=== PATIENT | female | born 1980 | race Caucasian/White ===

== ENCOUNTER → 2016-04-04 | Outpatient (REF) | payer OTHER ==
[~2016-04-04] MED LIST: ACET50TA PO; IBUP80TA PO; MOTR200T44 PO; PNV-CAP5 PO
[2016-04-04 18:30] LABS: HCG, SERUM QUANTITATIVE 104822 MIU/ML
[2016-04-04 18:39] LABS: MEAN CORPUSCULAR HEMOGLOBIN 31.4 pg (27.0-33.0); MEAN CORPUSCULAR VOLUME 92.5 fl (80.0-96.0); WHITE BLOOD COUNT 10.1 K/mm3 (4.0-10.0)
[2016-04-05 11:13] LABS: HEPATITIS B SURFACE ANTIBODY NEGATIVE (POSITIVE)
[2016-04-08 14:10] LABS: CONTROL LINE INT CTR LINE PRESENT; HIV SCRN NEGATIVE (NEGATIVE); HIV SCRN1 NEGATIVE (NEGATIVE)
== END | disposition home or self-care (01) ==
LOC: M LAB REF 16:54
PROVIDERS: ATTEND Obstetrics & Gynecology
DX: O36.80X0 Pregnancy with inconclusive fetal viability, not applicable or unspecified (principal); Z36 Encounter for antenatal screening of mother; Z3A.00 Weeks of gestation of pregnancy not specified

== ENCOUNTER → 2016-05-01 | Outpatient (REF) | payer OTHER ==
[2016-05-01 12:10] LABS: ALBUMIN 3.8 GM/DL (3.2-5.2); ALBUMIN/GLOBULIN RATIO 1.31 (1.00-1.93); ALKALINE PHOSPHATASE 54 U/L (45-117); ALT/SGPT 15 U/L (12-78); ANION GAP 7 MEQ/L (8-16); AST/SGOT 10 U/L (15-37); BILIRUBIN,TOTAL 0.6 MG/DL (0.2-1.0); BLOOD UREA NITROGEN 10 MG/DL (7-18); CALCIUM LEVEL 8.7 MG/DL (8.5-10.1); CARBON DIOXIDE LEVEL 26 MEQ/L (21-32); CHLORIDE LEVEL 106 MEQ/L (98-107); CHOLESTEROL LEVEL 156 MG/DL (<200); CREATININE FOR GFR 0.52 MG/DL (0.55-1.02); GLOMERULAR FILTRATION RATE > 60.0 (>60); GLUCOSE, FASTING 83 MG/DL (70-105); SODIUM LEVEL 139 MEQ/L (136-145); TOTAL PROTEIN 6.7 GM/DL (6.4-8.2); TRIGLYCERIDES LEVEL 80 MG/DL (<150)
== END ==
LOC: M SFHCCLAY 07:51
PROVIDERS: ATTEND Family Medicine
DX: Z00.00 Encounter for general adult medical examination without abnormal findings (principal)

== ENCOUNTER → 2016-05-02 | Outpatient (REF) | payer OTHER | LOC: M LAB REF 12:21 | PROVIDERS: ATTEND Advanced Practice Midwife | DX: O36.80X0 Pregnancy with inconclusive fetal viability, not applicable or unspecified (principal) ==

== ENCOUNTER → 2016-06-26 | Outpatient (CLI) | payer OTHER ==
--- NOTE | 2016-06-27 06:09 | REP ---
Clinical: Anatomical evaluation. Comparison: None . Findings: Examination demonstrates a single live intrauterine in cephalic presentation. motion is identified by technologist. Placenta is noted anteriorly and grade zero without evidence for placenta previa or abruption. Amniotic fluid volume is normal. Cervix measures 3.3 cm in length and appears closed. No evidence for nuchal cord. Gestational age by LMP 19 weeks 2 days with SHANTEL 11/08/2016 . Gestational age by current measurements 18 weeks 6 days with SHANTEL 11/21/2016 . FHR equals 141 beats per minute. BPD 4.1 cm 18 weeks 4 days HC 15.9 cm 18 weeks 5 days AC 13.6 cm 19 weeks 0 days FL 3.2 cm 19 weeks 6 days HC/AC ratio 1.17 Estimated weight 285 grams ( 46 percentile). Anatomical assessment demonstrates normal structures including cranium, choroid plexus, cavum, cerebellum/posterior fossa, facial features, lungs, four-chamber heart/ventricular outflow tracts, diaphragm, stomach, cord insertion/three-vessel cord, kidneys/bladder, and extremities. Limited evaluation of the facial profile and spine noted. Impression: Single live intrauterine in cephalic presentation demonstrating appropriate interval growth. Anatomical limitations as noted above. Remainder of the anatomical assessment is complete and normal. Signed by Zach Park MD 06/27/2016 06:01 A
== END ==
LOC: M WHC 08:00
PROVIDERS: ATTEND Obstetrics & Gynecology
DX: Z34.82 Encounter for supervision of other normal pregnancy, second trimester (principal); Z36 Encounter for antenatal screening of mother; Z3A.18 18 weeks gestation of pregnancy

== ENCOUNTER → 2016-07-12 | Outpatient (CLI) | payer OTHER ==
--- NOTE | 2016-07-12 13:45 | REP ---
LIMITED OB ULTRASOUND: Real-time sonographic evaluation of the gravid uterus is performed utilizing transabdominal technique. There is a single living intrauterine gestation. The estimated gestational age 21 weeks 4 day, EDC 11/18/2016. The cervix is closed and measures 3.7 cm in length. heart rate 141 beats per minute. The upper lip, stomach, kidneys, bladder and spine are visualized and are grossly unremarkable. position is vertex. The placenta is anterior and grade 0 with no previa or abruption. Amniotic fluid within normal limits.
== END ==
LOC: M WHC 07:55
PROVIDERS: ATTEND Obstetrics & Gynecology
DX: Z34.82 Encounter for supervision of other normal pregnancy, second trimester (principal); Z36 Encounter for antenatal screening of mother; Z3A.21 21 weeks gestation of pregnancy

== ENCOUNTER → 2016-08-15 | Outpatient (CLI) | payer OTHER ==
[2016-08-15 13:56] LABS: MEAN CORPUSCULAR HEMOGLOBIN 34.4 pg (27.0-33.0); MEAN CORPUSCULAR HGB CONC 35.4 g/dl (32.0-36.5); MEAN CORPUSCULAR VOLUME 97.2 fl (80.0-96.0); RED CELL DISTRIBUTION WIDTH 12.4 % (11.5-14.5)
== END ==
LOC: M LAB 12:13
PROVIDERS: ATTEND Advanced Practice Midwife
DX: Z34.82 Encounter for supervision of other normal pregnancy, second trimester (principal); Z36 Encounter for antenatal screening of mother; Z3A.00 Weeks of gestation of pregnancy not specified

== ENCOUNTER → 2016-09-26 | Outpatient (REF) | payer OTHER ==
[~2016-09-26] MED LIST changes: +TYLE325C PO
[2016-09-26 14:17] LABS: MEAN CORPUSCULAR VOLUME 97.1 fl (80.0-96.0); RED CELL DISTRIBUTION WIDTH 12.7 % (11.5-14.5); WHITE BLOOD COUNT 10.7 K/mm3 (4.0-10.0)
== END ==
LOC: M LAB REF 12:41
PROVIDERS: ATTEND Obstetrics & Gynecology
DX: D69.6 Thrombocytopenia, unspecified (principal)

== ENCOUNTER → 2016-10-24 | Outpatient (REF) | payer OTHER | LOC: M LAB REF 13:17 | PROVIDERS: ATTEND Advanced Practice Midwife | DX: Z34.83 Encounter for supervision of other normal pregnancy, third trimester (principal); Z36 Encounter for antenatal screening of mother; Z3A.36 36 weeks gestation of pregnancy ==

== ENCOUNTER 2016-11-21 14:04 | Inpatient (IN) | payer OTHER ==
[2016-11-21] VITALS (27 sets, daily range): BP systolic 97–129; BP diastolic 53–73
[~2016-11-21] VITALS: Ht 175.3 cm; Wt 80.0 kg
[~2016-11-21 14:04] MED LIST changes: -TYLE325C PO
[2016-11-21] MEDS ORDERED: LR 800 ML IV SCH (14:45)
[2016-11-21 15:44] LABS: MEAN CORPUSCULAR HEMOGLOBIN 34.2 pg (27.0-33.0); MEAN CORPUSCULAR HGB CONC 36.5 g/dl (32.0-36.5); MEAN CORPUSCULAR VOLUME 93.8 fl (80.0-96.0); RED CELL DISTRIBUTION WIDTH 12.8 % (11.5-14.5); WHITE BLOOD COUNT 14.4 K/mm3 (4.0-10.0)
[2016-11-21] MEDS ORDERED: LR 1,000 ML IV SCH ×2 (15:45→16:32)
[2016-11-21] MEDS ORDERED: LACTATED RINGER'S 1000 ML IV STA (16:32)
[2016-11-21] MEDS ORDERED: OXYTOCIN DRIP 30 UNITS in APPROPRIATE DILUENT 1 EA IV SCH ×2 (16:45→22:43)
--- NOTE | 2016-11-21 17:23 | HPEPDOC ---
Obstetrical History & Physical General Date of Admission Nov 21, 2016 at 14:12 Primary Care Physician: JOSH VARNER CNM History of Present Illness Patient is a 36 year-old female who is a at 40.3 weeks gestation with an SHANTEL of 11/18/16 based off of her LMP and consistent with her 1st trimester ultrasound. She initiated care in her first trimester at [facility]. Her has been complicated by a history of a delivery and thrombocytopenia of . She presented to L&D in active labor. Reports active movement and contractions. Denies leaking of fluid or vaginal bleeding. Chief Complaint: Contractions, term, Active Labor Information Provided By: Patient Age: 36 : 3 Term: 1 Pre-term: 1 Abortions: 0 Livin Care Care: Good Care Dating Final EDC: Nov 18, 2016 Final EDC by: LMP LMP: Feb 11, 2015 EGA at Admission: 40.3 Antepartum Course Diagnos(e)s thrombocytopenia of Height (inches): 69 Pre- weight (lbs.): 143 Admission Weight (lbs.): 175 Change in Weight (lbs.): 32 Past Medical History Past Obstetrical History #1: Past Obstetrical History: Multigravida Gestation: 36.3 Type of Delivery: Spontaneous Vaginal Del. (08/2012) Sex of : Male (weighting 6lbs 6 oz. ) Complications: Yes () Past Obstetrical History #2: Past Obstetrical History: Multigravida (Delivery: 05/2014) Gestation: 38.3 Type of Delivery: Spontaneous Vaginal Del. Sex of Infant: Female (weighting 7 lbs 4 oz. ) Complications: No ENDBANDER History: Genital Warts (History in 2005) Past Medical History Medical History Varicella as a child Surgical History: Toney teeth, Other (excision of bartholin cyst 2014) Family History Significant Family History: Cancer, Heart disease, Hypertension Social History Marital Status: Family situation: Spouse/partner home Psychosocial History: No pertinent psych hx * Smoker: non-smoker Alcohol: Denies Drugs: denies Abuse Violence Screening Have you been hit/kicked/slapp: No Have you been sexually assault: No Imunizations Tdap status: current Allergies Coded Allergies: Penicillins (Verified Allergy, Mild, HIVES, 08/16/12) Medications Scheduled (Pnv-Total) Cap, 1 PO DAILY Physical Examination Physical Examination GENERAL: Alert and oriented times three. BREAST: . ABDOMEN: Gravid and non-tender to touch. FETUS: Is vertex (VTX) by sterile vaginal examination (SVE), fetus is vertex ( VTX) by Vasile. HEART RATE: Regular rate and rhythm. LUNGS: Clear to auscultation (CTA). EXTREMITIES: No edema. No clonus. Vital Signs/I&O Vital Signs Date Time Temp Pulse Resp B/P (MAP) Pulse Ox O2 Delivery O2 Flow Rate FiO2 11/21/16 15:45 98.8 73 18 115/69 (84) I&O- Last 24 Hours up to 6 AM 11/22/16 05:59 Output Total 700 ml Balance -700 ml Laboratory Data 24H LABS Laboratory Tests 2 11/21/16 14:57: Serology Scanned Report Hepatitis B Testing 11/21/16 15:30: CBC/BMP Laboratory Tests 11/21/16 15:30 Red Blood Count 3.65 L, Mean Corpuscular Volume 93.8, Mean Corpuscular Hemoglobin 34.2 H, Mean Corpuscular Hemoglobin Concent 36.5, Red Cell Distribution Width 12.8 Urine Culture: No Growth Pertinent Laboratoy Data Blood Type: O+ RBC Antibody Screen: Negative HIV: Negative Hepatitis B: Negative Hepatitis C: Negative Rapid Plasma Reagin: Nonreactive Rubella: Immune Chlamydia/Gonorrhea: Negative Group B Streptococcus: Negative Quad Screen Test: Declined Glucose Tolerance Test: 112 Vaginal Examination Dilation: 5 cm Effacement: 80+% Station: -2 Cervical Consistency: Soft Cervical Position: Anterior Presentation: Cephalic presentation Position: Vertex (occiput) Assessment Heart Rate (FHR): 120 Variability: Moderate Accelerations: Positive Decelerations: None Tocometer Contractions: Yes Frequency: every 2-5 min. Duration: greater than 60 seconds Strength: palpated as moderate Multi-drug resistant Organism: No history of MDRO Assessment/Plan Assessment IUP at 40.3 weeks gestation Active labor thrombocytopenia of Category I FHR tracing Plan Admit to L&D. SL and labs per protocol. OOB ad ericka. clear liquid diet anesthesia consult as patient desires epidural. Pitocin via IV ordered after consent from patient. Anticipate cervical change and . JOSH VARNER CNM Nov 21, 2016 17:23
[2016-11-21] MEDS ORDERED: FENTANYL 2MCG/ML ROPIVACAINE 0.2% IN 0.9% NACL 200ML IVBAG As Ordered ONE (20:30)
[2016-11-21] MEDS ORDERED: EPIDURAL COMMENT XX SCH (22:00)
[2016-11-21] MEDS ORDERED: REFRIGERATOR IV KEYS XX PRN (22:00)
[2016-11-21] MEDS ORDERED: diphenhydrAMINE INJ 50MG/ML VIAL (J1200) IV PRN (22:00)
[2016-11-21] MEDS ORDERED: ONDANSETRON 4MG/2ML VIAL (J2405) IV PRN (22:00)
[2016-11-21] MEDS ORDERED: ePHEDrine SULFATE 25 MG/5 ML(5MG/ML) SYRINGE IV PRN (22:00)
[2016-11-21] MEDS ORDERED: FENTANYL/ROPIVACAINE/NACL BAG 200 ML EPIDURAL SCH (22:00)
[2016-11-21] MEDS ORDERED: NALOXONE INJ 0.4 MG/1 ML VIAL (J2310) IV PRN (22:00)
[2016-11-21] MEDS ORDERED: EPIDURAL/PCA KEYS XX PRN (22:00)
[2016-11-21] MEDS ORDERED: ACETAMINOPHEN 500 MG TAB PO PRN (22:45)
[2016-11-21] MEDS ORDERED: DOCUSATE SODIUM 100 MG CAP PO PRN (22:45)
[2016-11-21] MEDS ORDERED: DIBUCAINE 1% OINTMENT 30GM TOP PRN (22:45)
[2016-11-21] MEDS ORDERED: ANUSOL HC CREAM 30GM TOP PRN (22:45)
[2016-11-21] MEDS ORDERED: RHOGAM 300 MCG (1500 IU) INJ (J2790) IM SCH (22:45)
[2016-11-21] MEDS ORDERED: MEASLES,MUMPS,RUBELLA VACCINE INJ (MMR-II) (90707) SC SCH (22:45)
[2016-11-21] MEDS ORDERED: METHYLERGONOVINE MALEATE 0.2 MG TAB PO PRN (22:45)
--- NOTE | 2016-11-21 23:03 | DNPDOC ---
[facility] Delivery Note Delivery Note DATE OF DELIVERY: 11/21/16 at 2207 PROCEDURE: Spontaneous vaginal delivery. PROVIDER: Josh Zuniga CNM, GIBRAN ANESTHESIA: epidural. ESTIMATED BLOOD LOSS: 200 mL. FINDINGS: 7 pounds 5 ounces, 3330 grams, female infant, Score 7/8, moderate meconium. DELIVERY SUMMARY: Patient is a 36 year-old female who is now a at 40.3 weeks gestation who presented to L&D in active labor. Her labor was augmented with Pitocin. She received an epidural for pain management. She progressed to fully dilated at 2158 and pushed to a live female at 220 in the OA position with restitution to ROT. The anterior shoulder delivered with ease and the corpus immediately followed. The baby was placed on the maternal abdomen. The cord was clamped x2 and cut. Baby was taken to warmer, suctioned and stimulated , which resulted in the baby to cry and be active. A 3-vessel cord was noted. The placenta delivered spontaneously and intact via Hoskins mechanism at 2211. Uterine hemostasis was achieved via fundal massage and rapid infusion of IV Pitocin. The perineum was inspected and found to have a perineal abrasion that was repaired with 1 stitch-3.[address]-1. The patient is going to breastfeed. They named their daughter "Maribel." Mom and baby are in stable condition. JOSH ZUNIGA CNM Nov 21, 2016 23:03
[2016-11-22 01:22] VITALS: BP 108/60
[2016-11-22 06:32] VITALS: BP 124/74
[2016-11-22] MEDS: PRENATAL VITAMINS CHEWABLE TABLET PO SCH (09:51)
[2016-11-22] MEDS ORDERED: SLF 3 ML SYR IV PRN (12:45)
[2016-11-22] MEDS: IBUPROFEN 800 MG TAB PO PRN ×2 (14:58→23:25)
[2016-11-22] MEDS: SLF 3 ML SYR IV SCH ×2 (14:59→22:00)
[2016-11-22 18:11] VITALS: BP 116/68
[2016-11-23 06:00] VITALS: BP 114/57
[2016-11-23] MEDS: PRENATAL VITAMINS CHEWABLE TABLET PO SCH (07:33)
[2016-11-23] MEDS: IBUPROFEN 800 MG TAB PO PRN (07:34)
[2016-11-23] MEDS ORDERED: TYLE325C PO (10:26)
[2016-11-23] MEDS ORDERED: MOTR200T44 PO (10:26)
== END 2016-11-23 10:55 | disposition home or self-care (01) | DRG 775 ==
LOC: M LDO 14:04 → M LDI 14:12 → M OBS 11-22 00:55
PROVIDERS: ADMIT Advanced Practice Midwife; ATTEND Advanced Practice Midwife
PROC: 10E0XZZ Delivery of Products of Conception, External Approach (ICD-10-PCS; principal; 2016-11-21)
PROC: 0HQ9XZZ Repair Perineum Skin, External Approach (ICD-10-PCS; 2016-11-21)
DX: O48.0 Post-term pregnancy (principal); O99.12 Other diseases of the blood and blood-forming organs and certain disorders involving the immune mechanism complicating childbirth; Z37.0 Single live birth; Z3A.40 40 weeks gestation of pregnancy; D69.6 Thrombocytopenia, unspecified; Z88.0 Allergy status to penicillin; Z79.899 Other long term (current) drug therapy; O70.0 First degree perineal laceration during delivery

== ENCOUNTER → 2018-05-21 | Outpatient (REF) | payer OTHER ==
[~2018-05-21] MED LIST changes: +MAPA500T2 PO; +TYLE325C PO
[2018-05-21 12:17] LABS: ALBUMIN 3.7 GM/DL (3.2-5.2); ALT/SGPT 30 U/L (12-78); BILIRUBIN,TOTAL 0.5 MG/DL (0.2-1.0); BLOOD UREA NITROGEN 10 MG/DL (7-18); CALCIUM LEVEL 8.5 MG/DL (8.5-10.1); CARBON DIOXIDE LEVEL 26 MEQ/L (21-32); CHLORIDE LEVEL 108 MEQ/L (98-107); CHOLESTEROL LEVEL 168 MG/DL (<200); CREATININE FOR GFR 0.61 MG/DL (0.55-1.30); GLOMERULAR FILTRATION RATE > 60.0 (>60); GLUCOSE, FASTING 93 MG/DL (70-100); HDL CHOLESTEROL 48 MG/DL (>40); LDL CHOLESTEROL 105 MG/DL (<100); NON-HDL-C 120 MG/DL; POTASSIUM SERUM 4.2 MEQ/L (3.5-5.1); SODIUM LEVEL 142 MEQ/L (136-145); TOTAL PROTEIN 6.7 GM/DL (6.4-8.2); TRIGLYCERIDES LEVEL 77 MG/DL (<150)
== END ==
LOC: M SFHCCLAY 07:12
PROVIDERS: ATTEND Nurse Practitioner Family
DX: Z00.00 Encounter for general adult medical examination without abnormal findings (principal)

== ENCOUNTER → 2019-11-23 | Outpatient (CLI) | payer OTHER ==
[~2019-11-23] MED LIST changes: -ACET50TA PO; +MAPA500T17 PO
== END ==
LOC: M LABSMTC 10:41
PROVIDERS: ATTEND Pediatrics
DX: Z20.828 Contact with and (suspected) exposure to other viral communicable diseases (principal)

== ENCOUNTER → 2020-05-11 | Outpatient (CLI) | payer OTHER ==
[2020-05-11 17:24] LABS: FREE T4 0.7 NG/DL (0.76-1.46); THYROGLOBULIN ANTIBODY 17.6 U/ML (<60.0); THYROID STIMULATING HORMONE 1.45 uIU/ML (0.358-3.740)
[2020-05-11 17:25] LABS: TOTAL T3 103.7 NG/DL (60.0-181.0)
== END ==
LOC: M LAB 16:13
PROVIDERS: ATTEND Family Medicine
DX: E04.9 Nontoxic goiter, unspecified (principal)

== ENCOUNTER → 2020-05-19 | Outpatient (CLI) | payer OTHER ==
--- NOTE | 2020-05-20 20:00 | REP ---
INDICATION: ENLARGED THYROID COMPARISON: None. TECHNIQUE: Young scale and color evaluation of the thyroid gland using the linear high frequency transducer. FINDINGS: Right thyroid lobe measures 6.0 x 1.7 x 1.6 cm and includes 5 x 3 x 4 mm complex hypoechoic nodule in the midpole, 7 x 5 x 7 mm complex nodule in the midpole, 7 x 4 x 7 mm complex hypoechoic nodule in the lower pole, and 4 x 2 x 5 mm cyst approaching the isthmus. Left lobe measures 5.1 x 1.4 x 1.2 cm and includes 2 x 2 x 4 mm midpole cyst and 8 x 5 x 7 mm hypoechoic midpole nodule. IMPRESSION: Scattered nonspecific small bilateral hypoechoic and complex nodules measuring up to 8 mm maximal diameter. Findings are indeterminate and may be followed as necessary. <Electronically signed by Zach Park > 05/20/201956
== END ==
LOC: M RAD 15:23
PROVIDERS: ATTEND Family Medicine
DX: E04.9 Nontoxic goiter, unspecified (principal)

== ENCOUNTER → 2020-07-03 | Outpatient (REF) | payer OTHER ==
[2020-07-04 14:05] LABS: FREE T4 0.81 NG/DL (0.76-1.46); THYROID STIMULATING HORMONE 0.929 uIU/ML (0.358-3.740)
== END ==
LOC: M SFHCCLAY 14:45
PROVIDERS: ATTEND Family Medicine
DX: E04.9 Nontoxic goiter, unspecified (principal)

== ENCOUNTER → 2020-10-04 | Outpatient (REF) | payer OTHER ==
[2020-10-04 16:58] LABS: FREE T4 0.77 NG/DL (0.76-1.46); TOTAL T3 98.6 NG/DL (60.0-181.0)
== END ==
LOC: M SFHCCLAY 13:07
PROVIDERS: ATTEND Family Medicine
DX: R79.89 Other specified abnormal findings of blood chemistry (principal); E04.9 Nontoxic goiter, unspecified

== ENCOUNTER → 2021-01-17 | Outpatient (CLI) | payer OTHER ==
--- NOTE | 2021-01-17 09:19 | REP ---
INDICATION: STRAIN OF QUADRICEPS MUSCLE COMPARISON: None. TECHNIQUE: AP and frog-lateral views of the left femur FINDINGS: Osseous structures, joint spaces, and surrounding soft tissues are essentially normal/age-appropriate. No acute fracture or dislocation. No periosteal reaction or abnormal calcifications. No subcutaneous emphysema or foreign body. IMPRESSION: Age-appropriate left femur radiographs. No acute fracture or dislocation. <Electronically signed by Zach Park > 01/17/21 0915
== END ==
LOC: M WUC 08:35
PROVIDERS: ATTEND Physician Assistant
DX: S76.112A Strain of left quadriceps muscle, fascia and tendon, initial encounter (principal); W18.30XA Fall on same level, unspecified, initial encounter; Y92.009 Unspecified place in unspecified non-institutional (private) residence as the place of occurrence of the external cause

== ENCOUNTER → 2021-02-01 | Outpatient (CLI) | payer OTHER ==
[2021-02-01 16:00] LABS: BASO % 0.6 % (0.0-1.0); EOS # 0.1 10^3/uL (0.0-0.5); EOS % 0.9 % (0.0-3.0); HEMOGLOBIN 12.1 g/dl (12.0-15.5); LYMPH # 1.7 10^3/uL (1.5-5.0); LYMPH % 24.7 % (24.0-44.0); MEAN CORPUSCULAR HEMOGLOBIN 30.9 pg (27.0-33.0); MEAN CORPUSCULAR HGB CONC 31.8 g/dl (32.0-36.5); MEAN CORPUSCULAR VOLUME 97.2 fl (80.0-96.0); MONO # 0.6 10^3/uL (0.0-0.8); MONO % 8.2 % (2.0-8.0); NEUTROPHILS # 4.4 10^3/uL (1.5-8.5); NEUTROPHILS % 65.2 % (36.0-66.0); PLATELET COUNT, AUTOMATED 156 10^3/uL (150-450); RED BLOOD COUNT 3.91 10^6/uL (4.00-5.40); WHITE BLOOD COUNT 6.7 10^3/uL (4.0-10.0)
[2021-02-01 16:38] LABS: ALBUMIN 3.8 GM/DL (3.2-5.2); ALT/SGPT 30 U/L (12-78); BILIRUBIN,TOTAL 0.4 MG/DL (0.2-1.0); BLOOD UREA NITROGEN 23 MG/DL (7-18); CALCIUM LEVEL 8.8 MG/DL (8.5-10.1); CARBON DIOXIDE LEVEL 30 MEQ/L (21-32); CHLORIDE LEVEL 105 MEQ/L (98-107); CREATININE FOR GFR 0.73 MG/DL (0.55-1.30); FREE T4 0.86 NG/DL (0.76-1.46); GLOMERULAR FILTRATION RATE > 60.0 (>60); GLUCOSE, FASTING 110 MG/DL (70-100); IRON (FE) 100 UG/DL (50-170); POTASSIUM SERUM 4.1 MEQ/L (3.5-5.1); SODIUM LEVEL 140 MEQ/L (136-145); TOTAL PROTEIN 6.8 GM/DL (6.4-8.2)
== END ==
LOC: M LAB 15:35
PROVIDERS: ATTEND Family Medicine
DX: R53.82 Chronic fatigue, unspecified (principal); Z13.0 Encounter for screening for diseases of the blood and blood-forming organs and certain disorders involving the immune mechanism; R79.89 Other specified abnormal findings of blood chemistry; E04.1 Nontoxic single thyroid nodule

== ENCOUNTER → 2021-06-04 | Outpatient (CLI) | payer OTHER ==
[2021-06-04 18:39] LABS: FREE T4 0.76 NG/DL (0.76-1.46); THYROID STIMULATING HORMONE 1.41 uIU/ML (0.358-3.740)
== END ==
LOC: M LAB 16:10
PROVIDERS: ATTEND Family Medicine
DX: R79.89 Other specified abnormal findings of blood chemistry (principal)

== ENCOUNTER → 2021-10-08 | Outpatient (REF) | payer OTHER ==
[2021-10-08 21:12] LABS: FREE T4 0.89 NG/DL (0.76-1.46); THYROID STIMULATING HORMONE 1.2 uIU/ML (0.358-3.740)
== END ==
LOC: M SFHCCLAY 11:53
PROVIDERS: ATTEND Family Medicine
DX: R79.89 Other specified abnormal findings of blood chemistry (principal)

== ENCOUNTER → 2022-02-11 | Outpatient (CLI) | payer OTHER ==
[2022-02-11 18:11] LABS: FREE T4 0.89 NG/DL (0.89-1.76)
[2022-02-11 18:12] LABS: THYROID STIMULATING HORMONE 1.463 uIU/ML (0.55-4.78)
== END ==
LOC: M LAB 16:57
PROVIDERS: ATTEND Family Medicine
DX: R79.89 Other specified abnormal findings of blood chemistry (principal)

== ENCOUNTER → 2022-08-23 | Outpatient (REF) | payer OTHER ==
[2022-08-23 11:33] LABS: FREE T4 0.99 NG/DL (0.89-1.76); THYROID STIMULATING HORMONE 1.804 uIU/ML (0.55-4.78)
[2022-08-24 16:10] LABS: H PYLORI SERUM QUANT IGA <9.0 units (0.0-8.9); H PYLORI SERUM QUANT IGM <9.0 units (0.0-8.9); H PYLORI SERUM QUANT IgG ABY 0.24 (0.00-0.79)
== END ==
LOC: M SFHCCLAY 08:04
PROVIDERS: ATTEND Family Medicine
DX: R79.89 Other specified abnormal findings of blood chemistry (principal); K59.00 Constipation, unspecified; R14.0 Abdominal distension (gaseous)

== ENCOUNTER → 2023-02-21 | Outpatient (REF) | payer OTHER ==
[2023-02-21 12:29] LABS: FREE T4 1.12 NG/DL (0.89-1.76); THYROID STIMULATING HORMONE 1.879 uIU/ML (0.55-4.78)
== END ==
LOC: M SFHCCLAY 07:36
PROVIDERS: ATTEND Family Medicine
DX: R79.89 Other specified abnormal findings of blood chemistry (principal)

== ENCOUNTER → 2023-08-15 | Outpatient (REF) | payer OTHER ==
[2023-08-15 13:05] LABS: FREE T4 1.06 NG/DL (0.89-1.76); THYROID STIMULATING HORMONE 1.685 uIU/ML (0.55-4.78)
== END ==
LOC: M SFHCCLAY 07:45
PROVIDERS: ATTEND Family Medicine
DX: R79.89 Other specified abnormal findings of blood chemistry (principal); E04.1 Nontoxic single thyroid nodule

== ENCOUNTER → 2024-02-04 | Outpatient (REF) | payer OTHER ==
[2024-02-04 11:56] LABS: ALKALINE PHOSPHATASE 60 U/L (35-104); ALT/SGPT 33 U/L (7.0-40); AST/SGOT 25 U/L (<34); BILIRUBIN,TOTAL 0.4 MG/DL (0.3-1.2); BLOOD UREA NITROGEN 21 MG/DL (9-23); CALCIUM LEVEL 9.6 MG/DL (8.5-10.1); CARBON DIOXIDE LEVEL 30 MMOL/L (20-31); CHLORIDE LEVEL 106 MMOL/L (98-107); CHOLESTEROL LEVEL 203 MG/DL (<200); CHOLESTEROL RISK RATIO 3.13 (<5); CREATININE FOR GFR 0.67 MG/DL (0.55-1.30); GLOMERULAR FILTRATION RATE > 60.0 (>58); GLUCOSE, FASTING 88 MG/DL (60-100); HDL CHOLESTEROL 64.8 MG/DL (>40); LDL CHOLESTEROL 125.4 MG/DL (<100); NON-HDL-C 138.2 MG/DL; POTASSIUM SERUM 4.7 MMOL/L (3.5-5.1); SODIUM LEVEL 138 MMOL/L (136-145); TRIGLYCERIDES LEVEL 64 MG/DL (<150)
[2024-02-04 11:58] LABS: FREE T4 0.94 NG/DL (0.89-1.76); THYROID STIMULATING HORMONE 1.562 uIU/ML (0.55-4.78); TOTAL T3 84.5 NG/DL (60.0-181.0)
== END ==
LOC: M SFHCCLAY 07:05
PROVIDERS: ATTEND Family Medicine
DX: E78.5 Hyperlipidemia, unspecified (principal); R79.89 Other specified abnormal findings of blood chemistry; E04.1 Nontoxic single thyroid nodule

== ENCOUNTER → 2024-05-24 | Outpatient (REF) | payer OTHER ==
[2024-05-24 14:43] LABS: FREE T4 1.08 NG/DL (0.89-1.76); THYROID STIMULATING HORMONE 1.834 uIU/ML (0.55-4.78)
[2024-05-24 14:44] LABS: MAGNESIUM LEVEL 2.2 MG/DL (1.8-2.4)
[2024-05-24 15:30] LABS: TOTAL T3 107.1 NG/DL (60.0-181.0)
== END ==
LOC: M SFHCCLAY 07:15
PROVIDERS: ATTEND Family Medicine
DX: F32.0 Major depressive disorder, single episode, mild (principal); R53.82 Chronic fatigue, unspecified; E55.9 Vitamin D deficiency, unspecified; R79.89 Other specified abnormal findings of blood chemistry; E04.1 Nontoxic single thyroid nodule

== ENCOUNTER → 2025-01-14 | Outpatient (REF) | payer OTHER | LOC: M SFHCCLAY 16:18 | PROVIDERS: ATTEND Family Medicine | DX: R79.89 Other specified abnormal findings of blood chemistry (principal); E04.1 Nontoxic single thyroid nodule; Z53.9 Procedure and treatment not carried out, unspecified reason ==